=== PATIENT | male | born 1960 | race Caucasian/White ===

== ENCOUNTER → 2019-12-25 16:45 | Outpatient (CLI) | payer BC, SELFPAY ==
--- NOTE | ~2019-12-25 | XR_ITS ---
[[id number] ] INDICATION: Left posterior rib pain TECHNIQUE: Frontal projection of the upper left ribs, frontal projection of the lower left ribs, obli que projection of all the left ribs, frontal inspiratory chest x-ray for interpretation. FINDINGS: There is a displaced left fourth rib fracture posteriorly. There are no soft tissue abnorm ality seen. The lungs are clear. IMPRESSION: 1: Displaced left posterior fourth rib fracture. Reviewed, dictated and finalized at location A.
== END ==
PROVIDERS: PCP Family Medicine; Visit Provider Family Medicine
DX: S22.32XA Fracture of one rib, left side, initial encounter for closed fracture (principal); X58.XXXA Exposure to other specified factors, initial encounter
CPT/HCPCS: 71101